=== PATIENT | female | born 1945 | race Caucasian/White ===

== ENCOUNTER 2016-11-22 08:29 | Day surgery (SDC) | payer OTHER ==
[2016-11-18 12:51] VITALS: BMI 29.6
[2016-11-22] MEDS ORDERED: PROPOFOL 20 ML ONE (09:36)
[2016-11-22] MEDS ORDERED: LIDOCAINE HCL 2% (20ML MULTI-DOSE VIAL) NR ONE (09:36)
[2016-11-22 10:42] VITALS: TEMP 97.7
[2016-11-22 12:11] VITALS: BP 117/75; PULSE 58
--- NOTE | 2016-11-23 14:55 | PATH ---
Surgical Pathology Report Patient Name: ANIKA NATION [facility]. Rec. #: [id number] /Age/Gender: 1945 (Age: 71) / F Account: [id number] Location: [facility]-ENDOSCOPY Taken: 11/22/2016 Received: 11/22/2016 Reported: 11/23/2016 Physicians: Peng Swartz M.D. Specimen(s) Received A: BX GASTRIC POLYP, BODY B: BX ANTRUM C: BX GE JUNCTION Clinical History Sliding hiatal hernia, diaphragm hernia without obesity Gastric body polyp, hiatal hernia with ulcer gastritis Final Diagnosis A. STOMACH, BODY, POLYP, BIOPSY: POLYPOID FRAGMENT OF GASTRIC OXYNTIC MUCOSA WITH MILD CHRONIC GASTRITIS AND HYPERPLASTIC CHANGE SUGGESTIVE OF HYPERPLASTIC POLYP. NEGATIVE FOR DYSPLASIA. IMMUNOSTAIN FOR H. PYLORI IS NEGATIVE FOR ORGANISMS. B. STOMACH, ANTRUM, BIOPSY: GASTRIC ANTRAL MUCOSA WITH MODERATE CHRONIC GASTRITIS AND FOVEOLAR HYPERPLASIA. IMMUNOSTAIN FOR H. PYLORI IS NEGATIVE FOR ORGANISMS. C. GE JUNCTION, BIOPSY: SQUAMOUS EPITHELIUM WITH CHRONIC INFLAMMATION AND REFLUX TYPE CHANGES. NO COLUMNAR EPITHELIUM PRESENT (NO INTESTINAL METAPLASIA/ZHOU'S ESOPHAGUS IDENTIFIED). Electronically Signed Domo Bernabe M.D. Gross Description A. Received in formalin, labeled "biopsy gastric polyp in body" are 2 sarkar, irregular portions of soft tissue measuring 0.2 and 0.5 cm in greatest dimension. The specimens are submitted in toto in one cassette. B. Received in formalin, labeled "biopsy antrum" is a sarkar, irregular portion of soft tissue measuring 0.2 cm in greatest dimension. The specimen is submitted in toto in one cassette. C. Received in formalin, labeled "biopsy GE junction" is a sarkar, irregular portion of soft tissue measuring 0.3 cm in greatest dimension. The specimen is submitted in toto in one cassette. DL/11/22/2016 saudi11/22/2016
== END 2016-11-22 11:40 | disposition home or self-care (01) ==
LOC: JASU-ENDO 08:29
PROVIDERS: ATTEND Internal Medicine Gastroenterology
PROC: 0DB68ZX Excision of Stomach, Via Natural or Artificial Opening Endoscopic, Diagnostic (ICD-10-PCS; 2016-11-22)
PROC: 0DB48ZX Excision of Esophagogastric Junction, Via Natural or Artificial Opening Endoscopic, Diagnostic (ICD-10-PCS; principal; 2016-11-22 09:30)
DX: K25.9 Gastric ulcer, unspecified as acute or chronic, without hemorrhage or perforation (principal); K29.50 Unspecified chronic gastritis without bleeding; K44.9 Diaphragmatic hernia without obstruction or gangrene; K31.7 Polyp of stomach and duodenum
CPT/HCPCS: 88305-TC; 88342-TC

== ENCOUNTER 2017-04-01 08:00 | Day surgery (SDC) | payer OTHER ==
[2017-04-01 08:30] VITALS: BMI 28.3
[2017-04-01] MEDS ORDERED: LIDOCAINE HCL 2% (20ML MULTI-DOSE VIAL) NR ONE (09:16)
[2017-04-01] MEDS ORDERED: PROPOFOL 20 ML ONE (09:16)
[2017-04-01 09:51] VITALS: TEMP 97.8
[2017-04-01 10:24] VITALS: BP 110/79; PULSE 62
--- NOTE | 2017-04-04 16:50 | PATH ---
Surgical Pathology Report Patient Name: ANIKA NATION [facility]. Rec. #: [id number] /Age/Gender: 1945 (Age: 71) / F Account: [id number] Location: [facility]-ENDOSCOPY Taken: 04/01/2017 Received: 04/01/2017 Reported: 04/04/2017 Physicians: Peng Swartz M.D. Specimen(s) Received A: BX EROSIONS ANTRUM B: BX GASTRIC BODY Clinical History Esophageal ulcer, esophagitis Hiatal hernia, antral erosions, gastritis Final Diagnosis A. STOMACH, ANTRUM, EROSION, BIOPSY: GASTRIC ANTRAL MUCOSA WITH MILD CHRONIC GASTRITIS. IMMUNOHISTOCHEMICAL STAIN FOR H. PYLORI IS NEGATIVE. B. STOMACH, BODY, BIOPSY: GASTRIC ANTRAL MUCOSA WITH MILD TO MODERATE CHRONIC GASTRITIS. IMMUNOHISTOCHEMICAL STAIN FOR H. PYLORI IS NEGATIVE. Electronically Signed Ciera Ulloa M.D. Gross Description A. Received in formalin, labeled "biopsy erosion antrum" is a sarkar, irregular portion of soft tissue measuring 0.3 cm. in greatest dimension. The specimen is submitted in toto in one cassette. B. Received in formalin, labeled "biopsy gastric body" are 2 sarkar, irregular portions of soft tissue measuring 0.2 and 0.5 cm. in greatest dimension. The specimens are submitted in toto in one cassette. 04/01/201704/01/2017
== END 2017-04-01 10:40 | disposition home or self-care (01) ==
LOC: JASU-ENDO 08:00
PROVIDERS: ATTEND Internal Medicine Gastroenterology
PROC: 0DB68ZX Excision of Stomach, Via Natural or Artificial Opening Endoscopic, Diagnostic (ICD-10-PCS; principal; 2017-04-01 09:00)
DX: K25.9 Gastric ulcer, unspecified as acute or chronic, without hemorrhage or perforation (principal); K29.70 Gastritis, unspecified, without bleeding; K44.9 Diaphragmatic hernia without obstruction or gangrene
CPT/HCPCS: 88305-TC; 88342-TC

== ENCOUNTER 2017-06-29 04:51 | Day surgery (SDC) | payer OTHER ==
[2017-06-22 09:38] VITALS: BMI 29.0
[2017-06-29 06:38] VITALS: TEMP 98.1
[2017-06-29] MEDS ORDERED: MIDAZOLAM HCL 2 MG/2 ML SINGLE DOSE VIAL ONE (07:33)
[2017-06-29] MEDS ORDERED: PROPOFOL 20 ML ONE (07:33)
[2017-06-29] MEDS ORDERED: SUCCINYLCHOLINE CHLORIDE 200 MG/10 ML VIAL ONE (07:33)
[2017-06-29] MEDS ORDERED: BUPIVACAINE HCL/PF 0.5% (5MG/ML) 10 ML VIAL ONE (07:45)
[2017-06-29] MEDS ORDERED: LIDOCAINE HCL 1%, 10 MG/ML (20ML VIAL) ONE (07:45)
--- NOTE | 2017-06-29 08:05 | HP ---
Satellite [facility] - Chief Complaint Chief Complaint: left hand pain History of Present Illness: left ring trigger finger History Source: Patient Limitations to Obtaining History: No Limitations - Past Medical History Allergies/Adverse Reactions: Allergies Allergy/AdvReac Type Severity Reaction Status Date / Time No Known Allergies Allergy Verified 06/29/17 06:55 - Current Medications Current Medications: Home Medications Medication Instructions Recorded Amlodipine Besylate [Norvasc -] 5 mg PO HS 11/19/12 Atenolol [Tenormin -] 100 mg PO HS 11/19/12 Hydrochlorothiazide [Hctz] 25 mg PO HS 11/19/12 Levothyroxine [Synthroid -] 0.025 mg PO DAILY 11/19/12 Potassium Chloride [K-Dur -] 20 meq PO HS 11/19/12 Atorvastatin Ca [Lipitor] 10 mg PO ASDIR 11/18/16 Multivitamins [Multivit ([facility] 1 tab PO HS 11/18/16 Formulary)] Vitamin E 1,000 unit PO HS 11/18/16 Aspirin [Aspirin EC] 81 mg PO DAILY 04/01/17 Cholecalciferol (Vitamin D3) 1,000 unit PO DAILY 04/01/17 [Vitamin D3 -] Pantoprazole Sodium [Protonix] 40 mg PO DAILY 04/01/17 Satellite Physical Exam - Physical Examination Vital Signs: Vital Signs Period Temp Pulse Resp BP Sys/Leggett Pulse Ox Last 24 Hr 98.1 F 77 18 115/60 98 General Appearance: Well Nourished ENT: Clear Lung: Clear to auscultation Heart: Regular rate & rhythm Breasts: Soft Abdomen: Soft Extremities: No edema Satellite Impression/Plan - Impression/Plan Impression: left ring trigger finger Operative Procedure: left ring trigger finger release Date to be Performed: 06/29/17
[2017-06-29] MEDS ORDERED: ceFAZolin SODIUM 1 GM VIAL IVPB ONE (08:15)
[2017-06-29] MEDS ORDERED: ceFAZolin SODIUM 1 GM VIAL ONE (08:34)
--- NOTE | 2017-06-29 08:46 | OP ---
Operative Note - Note: Operative Date: 06/29/17 Pre-Operative Diagnosis: left ring trigger finger Operation: left ring trigger finger release, tendon sheath excision Post-Operative Diagnosis: Same as Pre-op Surgeon: Shai Causey Mold Injector: Yves Wolff Anesthesiologist/INVENTORY ADMINISTRATOR: Evie Oreilly Anesthesia: Local, MAC Specimens Removed: tendon sheath Estimated Blood Loss (mls): 0 Drains, Volume Out (mls): 0 Blood Volume Replaced (mls): 0 Fluid Volume Replaced (mls): 300 Operative Report Dictated: Yes
[2017-06-29] MEDS ORDERED: ONDANSETRON 4 MG/2 ML VIAL IVPUSH PRN (10:05)
[2017-06-29] MEDS ORDERED: LACTATED RINGERS SOLUTION 1,000 ML IV SCH (10:15)
[2017-06-29 10:57] VITALS: BP 132/62; PULSE 68
--- NOTE | 2017-06-29 11:33 | SPEC ---
DATE OF OPERATION: 06/29/2017 PREOPERATIVE DIAGNOSIS: Left ring finger trigger finger. POSTOPERATIVE DIAGNOSIS: Left ring finger trigger finger. PROCEDURE: Left ring finger trigger finger release and tendon sheath excision. SURGEON: Shai Causey MD HOUSEKEEPING DIRECTOR: Laina Cooper MD BULLET ASSEMBLY PRESS OPERATOR: , MEDICATION ADMINISTRATION PROFESSIONAL ANESTHESIA: Local with MAC sedation. DRAINS: None. COMPLICATIONS : None. SPECIMEN: Tendon sheath, left ring finger. BLOOD LOSS: None. BLOOD GIVEN: None. FLUID REPLACEMENT: Plasmalyte, 300 mL. INDICATIONS: This patient is a 71-year-old female with the preoperative diagnosis of a painful recurrent left ring finger trigger finger. After understanding the potential risks, complications, alternatives and benefits of surgical versus nonsurgical treatment, the patient elected to undergo this procedure. PROCEDURE: The patient was brought to the operating room, IV was placed, IV sedation was given. One gram of intravenous Ancef given. A tourniquet was applied to the left upper arm and the left upper extremity was prepped and draped in sterile fashion. The entire case was done under 3.8 loupe magnification. A marking pen was utilized to yael out a longitudinal incision in an already existing skin crease at the base of the left ring finger. Then 10 mL of 0.5% Marcaine mixed with 1% lidocaine was injected in and around the incision. The left upper extremity was elevated, exsanguinated with an Esmarch bandage and the tourniquet inflated to 250 mmHg. A No. 15 scalpel blade was utilized to cut down through the skin. Subcutaneous hemostasis was achieved with the bipolar cautery. Additional dissection was done with Littler scissors until I was able to directly visualize the A1 chepe sheath in its entirety. Self-retaining retractors were placed into the wound. A R[place]ale elevator was used to free up the tissue on the radial side, the ulnar side distally and proximally under better visualization of A1 chepe sheath. Next, using a fresh No. 15 scalpel blade, I excised the central 1/3 of the A1 chepe sheath and passed it off the field as specimen, tendon sheath, left ring finger. I then completed the release, both distally and proximally, and brought the FDS and FDP tendons out through the wound with a Ragnell retractor. There were no abnormal points of compression. I was able to move the left ring finger without the tendons bunching up at all. The area was then copiously irrigated and washed out. I then checked one more time to make sure there were no abnormal points of compression. None were seen and therefore closure was begun. One stitch using 4-0 Vicryl was used in the deep dermal layer. Skin was reapproximated with 4-0 nylon sutures in a horizontal mattress fashion. The area was then washed and dried, covered with Xeroform gauze, sterile 4x4's, fluffs between the fingers, Webril and Coban. The tourniquet was taken down after a total tourniquet time of 15 minutes. There were no complications during the case. The patient tolerated the procedure well and was brought to the ambulatory recovery room in stable condition. LAINA COOPER M.D. [id number]
--- NOTE | 2017-06-30 14:03 | PATH ---
Surgical Pathology Report Patient Name: ANIKA NATION [facility]. Rec. #: [id number] /Age/Gender: 1945 (Age: 71) / F Account: [id number] Location: [facility] SURGICAL Taken: 06/29/2017 Received: 06/29/2017 Reported: 06/30/2017 Physicians: Katie Durham M.D. Specimen(s) Received TISSUE OF TENDER SHEATH LEFT 4TH FINGER Clinical History Trigger finger Final Diagnosis TENDON SHEATH, FINGER, LEFT, FOURTH, EXCISION: BENIGN DENSE FIBROCONNECTIVE TISSUE. Electronically Signed Ciera Ulloa M.D. Gross Description Received in formalin labeled "tendon sheath fourth left finger," is a 0.7 cm in greatest dimension sarkar soft tissue fragment, possibly consistent with a portion of tendon sheath. The specimen is submitted in toto in one cassette. /06/29/201706/29/2017
== END 2017-06-29 10:45 | disposition home or self-care (01) ==
LOC: JASU-SURG 04:51
PROVIDERS: ATTEND Orthopaedic Surgery
PROC: 0LN80ZZ Release Left Hand Tendon, Open Approach (ICD-10-PCS; principal; 2017-06-29 08:00)
DX: M65.342 Trigger finger, left ring finger (principal)
CPT/HCPCS: 88304-TC

== ENCOUNTER → 2020-12-29 | Day surgery (SDC) | payer OTHER | END | disposition home or self-care (01) | LOC: JRADIR 09:38 | PROVIDERS: ATTEND Internal Medicine Endocrinology, Diabetes & Metabolism | PROC: 0G9G3ZX Drainage of Left Thyroid Gland Lobe, Percutaneous Approach, Diagnostic (ICD-10-PCS; principal; 2020-12-29) | DX: E04.1 Nontoxic single thyroid nodule (principal) | CPT/HCPCS: 10005; 76942; 88173; 88305-TC ==

== ENCOUNTER 2021-01-20 14:30 | Emergency (ER) | payer OTHER ==
[2021-01-20 15:13] VITALS: TEMP 98.4; BMI 30.2
[2021-01-20] MEDS ORDERED: FAMOTIDINE 20 MG/50 ML IVPB 20 MG/50 ML MG IVPB ONE ×2 (16:49→16:58)
[2021-01-20] MEDS ORDERED: SODIUM CHLORIDE 0.9% 500 ML INFUS.BAG IV ONE (17:19)
[2021-01-20 17:20] LABS: BASO % 0.7 % (0-2.0); EOS % 2.1 % (0-4.5); HEMATOCRIT 41.5 % (32.4-45.2); HEMOGLOBIN 14.5 GM/dL (10.7-15.3); LYMPH % 20.5 % (8-40); MEAN CELL VOLUME 94.5 fl (80-96); MEAN PLT VOLUME 7.9 fl (7.5-11.1); NEUT % 66.7 % (42.8-82.8); PLATELET COUNT 264 10^3/uL (134-434); RBC 4.39 M/mm3 (3.60-5.2); RDW 13.3 % (11.6-15.6)
[2021-01-20 17:44] LABS: CHLORIDE 101 mmol/L (98-107); SODIUM 138 mmol/L (136-145)
[2021-01-20 17:46] LABS: CALCIUM 9.8 mg/dL (8.5-10.1)
[2021-01-20 17:47] LABS: ALBUMIN 4.1 g/dl (3.4-5.0); ANION GAP 8 MMOL/L (8-16); BLOOD UREA NITROGEN 18.2 mg/dL (7-18); CO2 29 mmol/L (21-32); GLUCOSE,RANDOM 88 mg/dL (74-106)
[2021-01-20 17:48] LABS: LIPASE 96 U/L (73-393)
[2021-01-20 17:50] LABS: CREATININE 1.1 mg/dL (0.55-1.3); SGOT/AST 29 U/L (15-37)
[2021-01-20 17:51] LABS: BILIRUBIN,TOTAL 0.8 mg/dL (0.2-1); SGPT/ALT 38 U/L (13-61); TOT PROT 7.9 g/dl (6.4-8.2)
[2021-01-20 17:52] LABS: ALK PHOS 71 U/L (45-117)
[2021-01-20 18:13] LABS: EPI CELLS 8 /uL (0-25.1); HYALINE CASTS 0 /uL (0-3.1); URINE APPEARANCE CLEAR; URINE BACTERIA 52 /uL (0-1359); URINE BILIRUBIN NEGATIVE (NEGATIVE); URINE COLOR YELLOW; URINE GLUCOSE (UA) NEGATIVE (NEGATIVE); URINE KETONE NEGATIVE (NEGATIVE); URINE LEUK ESTERASE 1+ (NEGATIVE); URINE NITRITE NEGATIVE (NEGATIVE); URINE PROTEIN NEGATIVE (NEGATIVE); URINE RBC 6 /uL (0-23.9); URINE UROBILINOGEN 0.2 mg/dL (0.2-1.0); URINE WBC 30 /uL (0-25.8)
[2021-01-20] MEDS ORDERED: AMOX TR/POT CLAV 875MG/125MG TABLETS (FP) PO ONE (19:48)
[2021-01-20] MEDS ORDERED: AMOX TR/POT CLAV 875MG/125MG TABLETS (FP) ONE (19:51)
[2021-01-20 21:06] VITALS: BP 136/80; PULSE 64
== END 2021-01-20 21:06 | disposition home or self-care (01) ==
LOC: JER 14:30
PROC: 3E033GC Introduction of Other Therapeutic Substance into Peripheral Vein, Percutaneous Approach (ICD-10-PCS; principal; 2021-01-20)
DX: K57.32 Diverticulitis of large intestine without perforation or abscess without bleeding (principal)
CPT/HCPCS: 36415; 74177-TC; 80053; 81003; 82550; 83690; 84484; 85025; 93005; 93010; 96374; 99285-25; Q9967

== ENCOUNTER 2021-01-28 12:13 | Emergency (ER) | payer OTHER ==
[2021-01-28 12:43] VITALS: BP 119/83; PULSE 67; TEMP 98.3; BMI 28.7
[2021-01-28] MEDS ORDERED: PHENAZOPYRIDINE HCL 100 MG TABLET (FP) PO ONE (12:58)
[2021-01-28] MEDS ORDERED: PHENAZOPYRIDINE HCL 100 MG TABLET (FP) ONE (13:22)
[2021-01-28 13:42] LABS: HEMATOCRIT 44.6 % (32.4-45.2); HEMOGLOBIN 14.6 GM/dl (10.7-15.3); MCH 31.4 pg (25.7-33.7); MCHC 32.8 g/dl (32.0-36.0); MEAN CELL VOLUME 95.7 fl (80-96); PLATELET COUNT 314 10^3/uL (134-434); RBC 4.66 M/mm3 (3.60-5.2); RDW 12.6 % (11.6-15.6); WHITE BLOOD COUNT 10.4 K/mm3 (4.0-10.8)
[2021-01-28 13:48] LABS: ALBUMIN 4.2 g/dl (3.4-5.0); BILIRUBIN,TOTAL 0.6 mg/dl (0.2-1); CALCIUM 9.5 mg/dl (8.5-10); CREATININE 1.3 mg/dl (0.55-1.3)
[2021-01-28 14:35] LABS: EPITHELIAL CELLS MANY /hpf
== END 2021-01-28 18:21 | disposition home or self-care (01) ==
LOC: FER 12:13
DX: N30.90 Cystitis, unspecified without hematuria (principal)
CPT/HCPCS: 36415; 76856-TC; 80053; 81003; 81015; 85025; 87086; 99284-25

== ENCOUNTER 2024-01-31 21:39 | Observation (INO) | payer OTHER ==
[2024-01-31 21:47] VITALS: BMI 28.7
[2024-01-31] MEDS ORDERED: ALBUTEROL SO4 2.5/IPRATROPIUM 0.5 INH SOL 3 ML VIAL.NEB. NEB ONE ×2 (21:55→23:04)
[2024-01-31] MEDS: ALBUTEROL SO4 2.5/IPRATROPIUM 0.5 INH SOL 3 ML VIAL.NEB. NEB ONE (22:00)
[2024-01-31 22:19] LABS: EOS % 7.6 % (0-4.5); HEMATOCRIT 40.4 % (32.4-45.2); HEMOGLOBIN 13.6 GM/dL (10.7-15.3); LYMPH % 39.6 % (8-40); MCH 31.8 pg (25.7-33.7); MCHC 33.7 g/dl (32.0-36.0); MEAN CELL VOLUME 94.5 fl (80-96); MEAN PLT VOLUME 7.6 fl (7.5-11.1); NEUT % 37.8 % (42.8-82.8); PLATELET COUNT 229 10^3/uL (134-434); RBC 4.27 M/mm3 (3.60-5.2); RDW 13.4 % (11.6-15.6); WHITE BLOOD COUNT 7.4 K/mm3 (4.0-10.0)
[2024-01-31 22:25] LABS: INR 1.04 (0.83-1.09); PROTHROMBIN TIME (PATIENT) 11.7 SEC (9.7-13.0)
[2024-01-31 22:28] LABS: ACTIVATED PTT 25.5 SECONDS (25.2-36.5)
[2024-01-31 22:39] LABS: POTASSIUM 3.1 mmol/L (3.5-5.1)
[2024-01-31 22:41] LABS: ALBUMIN 3.7 g/dl (3.4-5.0); BLOOD UREA NITROGEN 21.9 mg/dL (7-18); CALCIUM 9.5 mg/dL (8.5-10.1)
[2024-01-31 22:44] LABS: CREATININE 1.1 mg/dL (0.55-1.3)
[2024-01-31 22:46] LABS: BILIRUBIN,TOTAL 0.5 mg/dL (0.2-1); TOT PROT 7.2 g/dl (6.4-8.2)
[2024-01-31] MEDS: ALBUTEROL SO4 2.5/IPRATROPIUM 0.5 INH SOL 3 ML VIAL.NEB. NEB SCH (23:06)
[2024-01-31] MEDS ORDERED: MAGNESIUM 1GM/D5W - 1 GM/100 ML IVPB IVPB ONE (23:39)
[2024-01-31] MEDS ORDERED: POTASSIUM CHLORIDE ORAL LIQUID 20 MEQ/15 ML ONE (23:39)
[2024-01-31] MEDS: POTASSIUM CHLORIDE ORAL LIQUID 20 MEQ/15 ML PO ONE (23:57)
[2024-01-31] MEDS: MAGNESIUM 1GM/D5W - 1 GM/100 ML IVPB IVPB ONE (23:57)
[2024-02-01] MEDS ORDERED: predniSONE 20 MG TABLET (UD) ONE (00:25)
[2024-02-01] MEDS: predniSONE 20 MG TABLET (UD) PO ONE (00:32)
[2024-02-01] MEDS ORDERED: ACETAMINOPHEN W/ CODEINE LIQ 5 ML CUP ONE (00:59)
[2024-02-01] MEDS: SODIUM CHLORIDE FOR INHALATION 3 ML VIAL.NEB IH ONE (01:09)
[2024-02-01] MEDS: ACETAMINOPHEN W/ CODEINE LIQ 5 ML CUP PO ONE (01:09)
[2024-02-01] MEDS: ATORVASTATIN CA 10 MG TABLET (FP) PO SCH ×2 (04:44→21:53)
[2024-02-01] MEDS ORDERED: ALBUTEROL SO4 2.5/IPRATROPIUM 0.5 INH SOL 3 ML VIAL.NEB. NEB ONE ×2 (06:07→14:48)
[2024-02-01] MEDS ORDERED: ACETAMINOPHEN INJECTION 100 ML ONE (06:07)
[2024-02-01 06:17] LABS: BASO % 0.3 % (0-2.0); EOS % 0.1 % (0-4.5); HEMATOCRIT 40.9 % (32.4-45.2); HEMOGLOBIN 13.6 GM/dL (10.7-15.3); MCH 31.6 pg (25.7-33.7); MCHC 33.3 g/dl (32.0-36.0); MEAN CELL VOLUME 94.9 fl (80-96); MEAN PLT VOLUME 7.9 fl (7.5-11.1); MONO % 1.6 % (3.8-10.2); PLATELET COUNT 235 10^3/uL (134-434); RBC 4.31 M/mm3 (3.60-5.2); RDW 13.3 % (11.6-15.6); WHITE BLOOD COUNT 8.6 K/mm3 (4.0-10.0)
[2024-02-01] MEDS: ACETAMINOPHEN 1000 MG/100 ML BAG IVPB PRN (06:19)
[2024-02-01] MEDS: ALBUTEROL SO4 2.5/IPRATROPIUM 0.5 INH SOL 3 ML VIAL.NEB. NEB PRN (06:19)
[2024-02-01 06:45] LABS: POTASSIUM 3.2 mmol/L (3.5-5.1)
[2024-02-01 06:47] LABS: CALCIUM 9.3 mg/dL (8.5-10.1)
[2024-02-01 06:48] LABS: ALBUMIN 3.9 g/dl (3.4-5.0); BLOOD UREA NITROGEN 17.1 mg/dL (7-18); MAGNESIUM 2.5 mg/dL (1.8-2.4)
[2024-02-01 06:50] LABS: CREATININE 1.1 mg/dL (0.55-1.3)
[2024-02-01 06:51] LABS: PHOSPHOROUS 3.9 mg/dL (2.5-4.9)
[2024-02-01 06:52] LABS: BILIRUBIN,TOTAL 0.6 mg/dL (0.2-1); TOT PROT 7.5 g/dl (6.4-8.2)
[2024-02-01] MEDS ORDERED: PANTOPRAZOLE 20 MG TABLET PO ONE (07:15)
[2024-02-01] MEDS ORDERED: LEVOTHYROXINE NA 25 MCG TABLET (FP) ONE (07:15)
[2024-02-01] MEDS ORDERED: methylPREDNISolone NA SUCC 40 MG/1 ML VIAL ONE (07:16)
[2024-02-01] MEDS: PANTOPRAZOLE 20 MG TABLET PO SCH (07:28)
[2024-02-01] MEDS: LEVOTHYROXINE NA 25 MCG TABLET (FP) PO SCH (07:28)
[2024-02-01] MEDS: methylPREDNISolone NA SUCC 40 MG/1 ML VIAL IVPUSH SCH ×2 (07:28→17:19)
[2024-02-01] MEDS: ALBUTEROL SO4 2.5/IPRATROPIUM 0.5 INH SOL 3 ML VIAL.NEB. NEB SCH (07:29)
[2024-02-01] MEDS ORDERED: INSULIN ASPART SLIDING SCALE (NOVOLOG) 1 VIAL SQ ONE ×2 (07:30→11:51)
[2024-02-01] MEDS: INSULIN ASPART SLIDING SCALE (NOVOLOG) 1 VIAL SQ SCH (07:40)
[2024-02-01] MEDS ORDERED: CHOLECALCIFEROL (VIT D3) 1,000 UNIT (25 MCG) TABLET ONE (09:07)
[2024-02-01] MEDS ORDERED: POTASSIUM CHLORIDE ORAL LIQUID 20 MEQ/15 ML ONE (09:08)
[2024-02-01] MEDS ORDERED: amLODIPine BESYLATE 5 MG TABLET (FP) ONE (09:13)
[2024-02-01] MEDS ORDERED: ASPIRIN 81 MG CHEWABLE TABLETS ONE (09:15)
[2024-02-01] MEDS: LOSARTAN POTASSIUM 50 MG TABLET PO SCH (09:26)
[2024-02-01] MEDS: ASPIRIN COATED 81 MG TABLET.EC PO SCH (09:26)
[2024-02-01] MEDS: amLODIPine BESYLATE 5 MG TABLET (FP) PO SCH (09:27)
[2024-02-01] MEDS: HYDROCHLOROTHIAZIDE 25 MG TABLET (FP) PO SCH (09:27)
[2024-02-01] MEDS: POTASSIUM CHLORIDE ORAL LIQUID 20 MEQ/15 ML PO SCH (09:27)
[2024-02-01] MEDS: ENOXAPARIN NA (PORCINE) 40 MG/0.4 ML DISP.SYRIN SQ SCH (09:27)
[2024-02-01] MEDS: CHOLECALCIFEROL (VIT D3) 1,000 UNIT (25 MCG) TABLET PO SCH (09:28)
[2024-02-01] MEDS ORDERED: POTASSIUM CHLORIDE TABS 20 MEQ TABLET.ER (FP) PO SCH (10:00)
[2024-02-01] MEDS: BUDESONIDE/FORMETEROL FUMARATE 80/4.5 mcg INHALER IH SCH (10:42)
[2024-02-01] MEDS ORDERED: AZITHROMYCIN IVPB 500 MG/250 ML BAG IVPB ONE (11:43)
[2024-02-01] MEDS ORDERED: CEFTRIAXONE 1 GM/50 ML BAG ONE (11:43)
[2024-02-01] MEDS: CEFTRIAXONE 1 GM in DEXTROSE 5%-WATER - 50 ML IVPB SCH (12:03)
[2024-02-01] MEDS: AZITHROMYCIN IVPB 500 MG/250 ML BAG IVPB ONE (12:54)
[2024-02-01] MEDS: guaiFENesin 200 MG/10 ML 10 ML UNIT-DOSE CUPS PO PRN (17:09)
[2024-02-01] MEDS: MULTIVITAMINS (DAILY MVI) TABLET (FP) PO SCH (21:53)
[2024-02-01] MEDS: MONTELUKAST NA 10 MG TABLET PO SCH (21:53)
[2024-02-01] MEDS: ATENOLOL 50 MG TABLET (FP) PO SCH (21:53)
[2024-02-01] MEDS: MAG HYDROX/AL HYDROX/SIMETH 30 ML UNIT-DOSE CUP PO PRN (22:13)
[2024-02-02 06:45] LABS: EPI CELLS >36 /uL (0-25.1); HYALINE CASTS 1 /uL (0-3.1); URINE APPEARANCE CLEAR; URINE BACTERIA 231 /uL (0-1359); URINE BILIRUBIN NEGATIVE (NEGATIVE); URINE COLOR YELLOW; URINE GLUCOSE (UA) NEGATIVE (NEGATIVE); URINE KETONE NEGATIVE (NEGATIVE); URINE LEUK ESTERASE 3+ (NEGATIVE); URINE NITRITE NEGATIVE (NEGATIVE); URINE PROTEIN NEGATIVE (NEGATIVE); URINE RBC 21 /uL (0-23.9); URINE UROBILINOGEN 0.2 mg/dL (0.2-1.0); URINE WBC 177 /uL (0-25.8)
[2024-02-02] MEDS ORDERED: PANTOPRAZOLE 40 MG TABLET PO SCH (08:25)
[2024-02-02] MEDS: predniSONE 20 MG TABLET (UD) PO SCH (09:48)
[2024-02-02] MEDS: AZITHROMYCIN IVPB 250 MG in DEXTROSE 5%-WATER - 250 ML IVPB SCH (10:47)
[2024-02-02 15:46] VITALS: BP 90/60; TEMP 97.7
[2024-02-02 15:56] VITALS: PULSE 105
[2024-02-02 18:14] VITALS: RESP 19
== END 2024-02-02 18:18 | disposition home or self-care (01) ==
LOC: JER 21:39 → JERBED 02-01 02:57 → J6W 02-01 15:18
PROVIDERS: ADMIT Internal Medicine; ATTEND Internal Medicine
PROC: 3E033NZ Introduction of Analgesics, Hypnotics, Sedatives into Peripheral Vein, Percutaneous Approach (ICD-10-PCS; principal; 2024-02-01)
PROC: 3E0F7GC Introduction of Other Therapeutic Substance into Respiratory Tract, Via Natural or Artificial Opening (ICD-10-PCS; 2024-02-01)
PROC: 3E03329 Introduction of Other Anti-infective into Peripheral Vein, Percutaneous Approach (ICD-10-PCS; 2024-02-01)
DX: J96.00 Acute respiratory failure, unspecified whether with hypoxia or hypercapnia (principal); E78.5 Hyperlipidemia, unspecified; J98.01 Acute bronchospasm; K21.9 Gastro-esophageal reflux disease without esophagitis; E03.9 Hypothyroidism, unspecified; I10 Essential (primary) hypertension; Z90.89 Acquired absence of other organs; R91.8 Other nonspecific abnormal finding of lung field
CPT/HCPCS: 0241U-QW; 36415; 71046-TC-FY; 71275-TC; 80053; 81003; 82962; 83735; 84100; 84484; 85025; 85379; 85610; 85730; 93005; 93010; 94640; 94761; 96365; 96366; 96368; 96372; 96375; 99285-25; G0378; J0131